=== PATIENT | female | born 1950 | race Caucasian/White ===

== ENCOUNTER 2025-03-27 08:03 | Observation (INO) | payer MEDICARE, MEDICAID ==
[2025-03-23 11:49] LABS: MEAN PLATELET VOLUME 7.5 FL (7.4-10.4); RED CELL DISTRIBUTION WIDTH 14.6 % (11.5-14.5)
[2025-03-23 11:56] LABS: LEUKOCYTE ESTERASE ,URINE TRACE (Neg); NITRITES, URINE NEGATIVE (Neg); OCCULT BLOOD,URINE NEGATIVE (Neg)
[2025-03-23 12:01] LABS: UA COLLECTION TYPE NON-SPECIFIED
[2025-03-23 12:03] LABS: SQUAMOUS EPITHELIAL CELL,UR FEW /LPF (FEW)
[2025-03-23 12:17] LABS: APTT 26 SECONDS (22-32); INR 1.0 INR
[2025-03-23 12:20] LABS: CREATININE 1.65 MG/DL (0.40-0.90); TOTAL CARBON DIOXIDE 27.7 MMOL/L (24-32); eGFR 30 ML/MIN
[2025-03-27] VITALS (21 sets, daily range): BP systolic 115–160; BP diastolic 59–93; PULSE 70–95; RESP 14–24; TEMP 97.2–98.8; O2SAT 95–100
[~2025-03-27] VITALS: Ht 167.6 cm; Wt 60.5 kg
[2025-03-27] MEDS: tranexamic acid 1gm/0.7% sal. 100 ML IV ONE (05:30)
[2025-03-27] MEDS: ceFAZolin 2gm/dext,iso 50mL 50 ML IV ONE (05:30)
[~2025-03-27 08:03] MED LIST: ALLO100T PO; BALANCE OF NATURE; COLC0.6T78 PO; LACT1CAP65 PO; LOSA1TAB41 PO; [UNRECOGNIZED DRUG - OTHER]
[2025-03-27] MEDS ORDERED: vancomycin 1,000mg inj ONE (09:01)
[2025-03-27] MEDS ORDERED: acetaminophen 1,000mg/100ml IV 100 ML IV PRN (09:10)
[2025-03-27] MEDS ORDERED: HYDROmorphone/PF 0.2 MG/ML SYRINGE IV PRN (09:10)
[2025-03-27] MEDS ORDERED: fentaNYL/PF 50MCG/1 ML 2ML syringe IV PRN ×2 (09:10)
[2025-03-27] MEDS ORDERED: labetalol 20mg/4ml (5mg/ml) syringe IV PRN (09:10)
[2025-03-27] MEDS ORDERED: hydrALAZINE 20mg/ml inj. IV PRN (09:10)
--- NOTE | 2025-03-27 09:13 | RADIOLOGY REPORT ---
CHEST RADIOGRAPH Indication: PRE OP CXR Technique: Single frontal view of the chest was obtained Comparison: BIOPSY ANGIO (A) on DOS: 09/22/22 FINDINGS: Lines and Tubes: None Lungs: There is right lower lobe atelectasis. Left lung is clear. Pleura: No effusion. No pneumothorax. Cardiomediastinal contours: Unremarkable Bones: No acute osseous abnormality. IMPRESSION: 1. Right lower lobe atelectasis.
[2025-03-27] MEDS: ringers solution, lacted 1,000 ML IV SCH ×2 (09:19→17:29)
[2025-03-27] MEDS ORDERED: magnesium hydroxide 30ml (MOM) UD suspension PO PRN (09:50)
[2025-03-27] MEDS ORDERED: bisacodyl 10mg suppository rectal RC PRN (09:50)
[2025-03-27] MEDS ORDERED: fentaNYL/PF 50MCG/1 ML 2ML syringe ONE (10:02)
[2025-03-27] MEDS ORDERED: midazolam 1 mg/ML 2ml injection ONE (10:02)
[2025-03-27] MEDS ORDERED: propofol inj 20 ML IV ONE (10:03)
[2025-03-27] MEDS ORDERED: ROPIVAcaine 0.5% (5mg/ml) 30ml vial ONE (10:04)
[2025-03-27] MEDS ORDERED: rocuronium 10mg/ml inj IV ONE (10:04)
[2025-03-27] MEDS ORDERED: dexamethasone sod phosphate 4mg/ml inj. ONE (14:02)
[2025-03-27] MEDS ORDERED: ceFAZolin/D5W- 1GM premix 50 ML IV SCH (16:00)
[2025-03-27] MEDS ORDERED: glycopyrrolate 0.2mg/ml inj ONE (16:31)
[2025-03-27] MEDS: ondansetron/PF 4mg/2ml inj IV PRN (17:15)
[2025-03-27] MEDS: HYDROmorphone/PF 0.2 MG/ML SYRINGE IV PRN (17:29)
--- NOTE | 2025-03-27 17:42 | OPERATIVE REPORT ---
Operative Report Providers to CC ~ Date of Procedure: Mar 27, 2025 Pre-Operative Diagnosis: L shoulder OA Post-Operative Diagnosis L shoulder OA with high grade partial supraspinatus tear Procedure Performed L RSA and bicep tenodesis Surgeon: Lazaro Ogden MD Racking Machine Operator Dr. Lutz Anesthesiologist: Abdullahi Rm Type of Anesthesia: General, Regional Findings: Severe left shoulder osteoarthritis. High-grade partial-thickness supraspinatus tendon tear. Complications None Prosthetics\Implants used: [employer] size nine comprehensive stem with a +0 humeral tray and +0 size 36 polyethylene bearing. On the glenoid side, a medium augmented base plate was used along with a 36, plus three lateralized glenosphere. The glenosphere is titanium. Estimated Blood Loss: 150 cc Specimen Removed: None Description of Procedure: Patient is brought to the operating. Placed in a supine position. Preoperative antibiotics of 2 g of Ancef were given along with 1 g of TXA. General plus regional anesthesia was performed. Patient was then positioned in a modified beach chair position. Bony prominences were well padded. Bilateral lower extremity SCDs were placed. The left upper extremity was prepped and draped in the usual sterile fashion. A time-out procedure was performed as per routine identifying the patient, site to be operated on, procedure to be performed, confirmed left shoulder interscalene block. Dr. Lutz financial planning assistant on this case. He is familiar with my proximal humeral approach and dissection. His retractor placement is boudreaux for proper humeral preparation and implantation. The same can be said for the glenoid side of things, perhaps even more crucial. His holding of retractors helped me a ccurately placed glenoid components. Lastly, he is very familiar with my subscapularis repair technique with passing multiple sutures. All of this helps facilitate the surgery, make it proceed smoothly, and help minimize complications. I began with the left shoulder deltopectoral incision. Cephalic vein was identified and taken laterally. I developed the deltopectoral interval and subdeltoid space. Retractors were placed under the deltoid for good visualization. I dissected out the long head of the biceps from proximal to the pectoralis major insertion. It was very tendinotic and very diseased. I tenodesed it to the upper portion of the pectoralis major with two locking FiberWire sutures. I then resected the proximal portion of the biceps all the w ay up to the rotator interval. Again it was very diseased. I then palpated along the medial neck. Care was taken to protect the axillary nerve after bluntly dissecting under the conjoined tendon. Once I did this, I carefully placed a retractor under the conjoined tendon to visualize the subscapularis. Tag sutures were placed in the subscapularis and then a peel was performed. I then released the inferior capsule off of the inferior humeral neck and by doing so, ultimately was able to dislocate the proximal humerus into the deltopectoral interval. I released just the most anterior portion of the supraspinatus. It was very diseased and very frayed. It essentially began to tear by itself. At this point, I had good visualization of the humeral head. A rongeur was used to remove marginal osteophytes. I identified the capsular reflexion. I then used a high-speed oscillating saw to then make a neck cut at 135 of neck shaft inclination and 20 of retroversion. I then sounded the canal up to a size 10 however the size 10 was somewhat tight. I then broached all the way up to a size nine. I did not feel comfortable broaching with a size 10 given how tight the sounding Reamer was. I felt the size nine had reasonable Press-Fit so I left that in place. I placed a cut protector and then moved onto the glenoid. A 360 degree soft tissue release was performed around the glenoid. Care was taken to stay directly on bone as much as possible. This was done to protect the neurovascular structures anteriorly and the axillary nerve inferiorly. By doing this, I was able to place retractors directly on bone for good visualization. I then referenced my 3D preoperative plan. Patient had significant superior inclination and retroversion deformity and so I went th rough different augments with the [employer] comprehensive system. I felt the small corrective augment was not enough so I went up to a medium. This looked a lot better. I placed the guide and then my central pin. Fluoroscopy was done to ensure that the pin position looked good. I then reamed the Paleo glenoid side of things. I reamed to the 50 yd line. Per technique, I then reamed for the yehuda glenoid side. Once I completed my corrective reaming, I then placed a coloring checker to ensure that my preparation was good. I was happy with it. A definitive medium implant was opened. I turned it to match my prepared surface and impacted it. It had excellent Press-Fit. I then applied a center compression screw with excellent purchase. I then placed four peripheral locking screws. The base plate was very stable. I then selected a 36, plus three lateralized glenosphere. I placed a little bit of inferior offset so that the inferior lip of the asymmetric poly would not impinge on the scapular neck. I then opened the definitive implant and set the eccentricity. I then placed the definitive implant placing the maximum offset inferiorly and impacted the taper. I tested the glenosphere and it seemed solidly fixed. I then moved back to the humerus. I placed a +0 tray and +0 polyethylene liner trial. I reduced the shoulder with an excellent positive reduction feel. Stable range of motion was internal rotation to the belly, external rotation to 80, easy overhead motion. Abduction external rotation to 100 and abduction internal rotation to 45. No dislocation with a lateral Shuck maneuver. I felt comfortable with this construct. Shoulder was dislocated with some effort. I removed all the trial components. I was happy with the fit of the size nine implant. So at this point, I irrigated the shoulder with IrriSept. I then placed four drill holes adjacent to the lesser tuberosity and passed 1.3 mm suture tape for my later subscapularis repair. Definitive implant was opened which was a size nine [employer] comprehensive stem with a +0 humeral tray and +0 humeral liner. I then impacted the stem 1st in 20 of retroversion. I then tested the stem and it seems solidly fixed so I then applied the tray and poly by engaging the taper and seating the implant against the cut surface. I tested stability of the implant and it seemed good so I reduced the shoulder with the same reduction feel as noted previously. Final fluoroscopy images were taken and I was happy with the construct. I then irrigated the shoulder with IrriSept and then 3 L of pulse lavage irrigation. I then reduced the subscapularis and performed my usual double row subscapularis repair with solid fixation. I performed an axillary nerve tug test and it was intact. I then irrigated the shoulder lightly again. I got adequate hemostasis. 1 g of vancomycin powder was placed adjacent to the implant. The deltopectoral interval was closed with FiberWire suture. Deep layers were closed with Stratafix suture, subcutaneous layers were closed with 2-0 Vicryl suture and skin was closed with 3-0 Stratafix suture. Final sponge and needle counts were correct. Wound was sealed with Prineo dressing and a sterile dressing was applied. An abduction shoulder orthotic was definitively fitted to the patient and placed in the operating room. This is utilized to help protect the shoulder in the perioperative.. Patient was thereafter recovered without complications and sent to recovery in good condition. Counts repoted as correct: Yes X-Ray findings: No Foreign body LAZARO OGDEN MD Mar 27, 2025 17:42
[2025-03-27] MEDS: HALLS - SOOTHE MENTHOL 1.8 MG cough drop LOZENGE MM PRN (18:07)
[2025-03-27] MEDS: potassium cl 20mEq in 1/2 NS 1,000 ML IV SCH (19:35)
--- NOTE | 2025-03-27 21:24 | RADIOLOGY REPORT ---
EXAM: DI SHOULDER, COMPLETE (MIN 2 VWS) INDICATION: post op,left TECHNIQUE: 3 views of the right COMPARISON: DI SHOULDER, COMPLETE (MIN 2 VWS) on DOS: 03/27/25 FINDINGS/IMPRESSION: There are expected postoperative changes with surrounding soft tissue emphysema and soft tissue swelling. No perioperative fracture.
[2025-03-27] MEDS: oxyCODONE IR 5mg (immed. release) tablet PO PRN (23:00)
[2025-03-27] MEDS: ceFAZolin/D5W- 1GM premix 50 ML IV SCH (23:00)
[2025-03-28] VITALS (10 sets, daily range): BP systolic 91–182; BP diastolic 43–104; PULSE 68–91; RESP 15–20; TEMP 98–99.3; O2SAT 96–97
[2025-03-28] MEDS: ondansetron/PF 4mg/2ml inj IV PRN (04:13)
[2025-03-28] MEDS: oxyCODONE IR 5mg (immed. release) tablet PO PRN (06:56)
--- NOTE | 2025-03-28 07:42 | PROGRESS NOTE ---
Progress Note Orthopedic Ortho Post Op Day #: 1 Follow Up Progress Note Status post left reverse total shoulder arthroplasty Central Line/PICC still needed: N\A Scruggs Catheter still needed?: N\A Subjective Patient complains of a headache. No real left shoulder pain yet. Her fingers are just starting to tingle. She is just starting to get a flicker of movement in her left hand. Objective Vital Signs Date Time Temp Pulse Resp B/P (MAP) Pulse Ox O2 Delivery O2 Flow Rate FiO2 03/28/25 07:00 81 03/28/25 06:56 20 03/28/25 06:31 99.1 143/74 (97) 96 Room Air 03/28/25 02:12 98 03/27/25 17:40 0.0 Alert and Oreinted x4, Appropriate, Vital signs are stable, In no acute distress Objective Examination of the left shoulder shows intact dressings. Just a very small amount of visible strike through. Axillary nerve sensation is diminished. 2+ radial pulse. She is just starting to get a flicker of extension in her fingers but otherwise no meaningful movement of the hand yet. She is having paresthesias but sensation is diminished in the left hand. Sling is in place. Lab Results comments Morning labs are pending. Other Results Postoperative x-rays were reviewed. No sign of fractures or dislocations. No visible complications. Joint alignment looks good. Problem/Assessment/Plan Assessment\Plan: Doing Well, Anticipate disch to home Patient is doing well. Recovering as expected. She is still seeing effects of the block. That should diminish over time. I explained this to her. She should call me later today if her hand still not moving. Patient should finish her IV antibiotics. I will have to follow up on her labs. She will be seen by Physical therapy just to be cleared for safe discharge. No left shoulder range of motion due to somewhat poor bone quality. As long as those things happened, patient should be discharged home later today with the following instructions: 1. No left shoulder range of motion 2. Patient must move her elbow, wrist, and hand to prevent stiffness and to prevent DVT 3. Strict nonweightbearing left upper extremity 4. Patient must use her sling at all times 5. Patient should resume her normal medications 6. Patient can not take anti-inflammatories so she has been advised that she must ambulate as much as she can and move her elbow, fingers, and hand routinely to prevent DVT. 7. Patient should hold off on therapy for two weeks. She should postpone her current therapy which is supposed to start in one week. 8. I will have to send in a prescription for pain medicine for her I discussed all of the above with the patient. Discharge instructions were provided for her. I reviewed them with her. All questions were answered. SANDEEP OGDEN MD Mar 28, 2025 07:42
--- NOTE | 2025-03-28 07:45 | DISCHARGE SUMMARY ---
Discharge Summary Providers to CC ~ Discharge Summary Admission Diagnosis: L shoulder OA Hospital Course DATE OF ADMISSION: 03/27/2025 DATE OF DISCHARGE: 03/28/2025 Discharge Diagnosis\Comment: Left shoulder osteoarthritis with high-grade partial-thickness rotator cuff tearing Operations\Procedures: On 03/27/2025, patient underwent a left reverse total shoulder arthroplasty and biceps tenodesis without complications Consultants: None Complications: None Condition on DC: Stable Discharge Summary: Patient underwent surgery as mentioned above without complications. She was admitted for routine postoperative care. She received postoperative antibiotics. Pain was controlled. Patient will be seen by Physical therapy to be cleared for safe discharge. No left shoulder range of motion. Strict nonweightbearing left upper extremity. She must move her elbow, fingers, and hand. I will have to review her labs when they are available. Patient should be discharged home later today with the following instructions: 1. No left shoulder range of motion 2. Patient must move her elbow, wrist, and hand to prevent stiffness and to prevent DVT 3. Strict nonweightbearing left upper extremity 4. Patient must use her sling at all times 5. Patient should resume her normal medications 6. Patient can not take anti-inflammatories so she has been advised that she must ambulate as much as she can and move her elbow, fingers, and hand routinely to prevent DVT. 7. Patient should hold off on therapy for two weeks. She should postpone her current therapy which is supposed to start in one week. 8. I will have to send in a prescription for pain medicine for her *Problems/Diagnosis: (1) Primary osteoarthritis, left shoulder Status: Resolved Total Time Spent on D/C: Up to 30 Minutes SANDEEP OGDEN MD Mar 28, 2025 07:45
[2025-03-28 08:54] LABS: MEAN PLATELET VOLUME 7.7 FL (7.4-10.4); RED CELL DISTRIBUTION WIDTH 14.5 % (11.5-14.5)
[2025-03-28 09:09] LABS: CREATININE 1.66 MG/DL (0.40-0.90); TOTAL CARBON DIOXIDE 24.0 MMOL/L (24-32); eCRCL 28 ML/MIN; eGFR 30 ML/MIN
== END 2025-03-28 17:39 | disposition home or self-care (01) ==
LOC: PAS 08:03 → SUR 3N 10:05 → PAS 18:55 → SUR 3N 03-28 09:29
PROVIDERS: ADMIT Specialist; ATTEND Specialist
DX: M19.012 Primary osteoarthritis, left shoulder (principal); M25.512 Pain in left shoulder; M75.112 Incomplete rotator cuff tear or rupture of left shoulder, not specified as traumatic; R79.1 Abnormal coagulation profile; Z79.899 Other long term (current) drug therapy; Z98.890 Other specified postprocedural states
CPT/HCPCS: 23472; 29828; 73030; 76000; 80053; 81001; 82948; 85610; 85730; 86885; 86900; 86901; 96365; 96366; 96375; 97161; A4565; A4618; A7000; C1713; C1776; G0378; J1171; J2710; J3480; J3490; J7120; 36415; 71045; 85025; 87081; 87088; 96376; 97110; 97535; A6449; A6455; J0690; J1100; J2250; J2405; J2704; J2795; J3010; J3373